=== PATIENT | male | born 1935 | race Caucasian/White ===

== ENCOUNTER 2020-07-20 10:11 | Inpatient (IN) | payer OTHER, SELFPAY ==
[~2020-07-20] VITALS: Ht 180.3 cm; Wt 98.9 kg
[2020-07-20 10:11] VITALS: BP_SYST 120
[2020-07-20 11:10] LABS: BASOPHILS % (AUTO) 0.4 % (0.0-2.0); EOSINOPHILS % (AUTO) 0.3 % (0.0-4.0); HEMATOCRIT 38.9 % (36-54); HEMOGLOBIN 13.1 g/dL (14.0-18.0); LYMPHOCYTES # (AUTO) 1.1 K/uL (1.0-5.5); LYMPHOCYTES % (AUTO) 25.4 % (20.5-51.5); MEAN CORPUSCULAR HEMOGLOBIN 31 pg (27-31); MEAN CORPUSCULAR HGB CONC 34 % (32-36); MEAN CORPUSCULAR VOLUME 93 fL (79.0-98.0); MONOCYTES # (AUTO) 0.5 K/uL (0.0-1.0); MONOCYTES % (AUTO) 11.6 % (1.7-9.3); NEUTROPHILS # (AUTO) 2.7 K/uL (1.8-7.7); NEUTROPHILS % (AUTO) 62.3 % (40.0-70.0); PLATELET COUNT (AUTO) 151 K/uL (130-430); RED CELL DISTRIBUTION WIDTH 14.4 % (9.0-15.0); WHITE BLOOD COUNT (AUTO) 4.3 K/uL (4.8-10.8)
[2020-07-20 11:31] LABS: ANION GAP 10 (5-15); CALCIUM 9.2 mg/dL (8.4-11.0); CHLORIDE 99 mmol/L (98-107); CREATININE 1.63 mg/dL (0.55-1.30); GLUCOSE 90 mg/dL (70-99); POTASSIUM 4.2 mmol/L (3.5-5.1); SODIUM SERUM 136 mmol/L (136-145); UREA NITROGEN, BLOOD 28 mg/dL (8-21)
[2020-07-20 11:36] LABS: BILIRUBIN,URINE NEGATIVE (NEGATIVE); BLOOD, URINE 1+ (NEGATIVE); CLARITY/URINE SL CLOUDY (CLEAR); COLOR,URINE YELLOW (YELLOW); GLUCOSE,URINE NEGATIVE (NEGATIVE); KETONES,URINE TRACE (NEGATIVE); LEUKOCYTE ESTERASE ,URINE NEGATIVE (NEGATIVE); NITRITE, URINE NEGATIVE (NEGATIVE); PROTEIN URINE 1+ (NEGATIVE); UROBILINOGEN,URINE 0.2 (0.2-1.0)
[2020-07-20 11:44] LABS: ACETONE, SERUM NEGATIVE (NEGATIVE)
[2020-07-20 11:46] LABS: ALANINE AMINOTRANSFERASE 33 U/L (12-78); ALBUMIN 3.4 g/dL (3.4-4.8); ASPARTATE AMINOTRANSFERASE 85 U/L (10-37)
[2020-07-20 11:47] LABS: PROTHROMBIN TIME 10.7 SECS (9.5-12.5)
[2020-07-20 12:07] LABS: CKMB RELATIVE INDEX 0.3 (0.0-2.9); CREATINE KINASE MB 4.1 ng/mL (0-3.6)
[2020-07-20 12:33] LABS: BACTERIA,URINE None Seen /HPF (None Seen); YEAST,URINE None Seen /HPF (None Seen)
[2020-07-20] MEDS ORDERED: NACL 0.9% 1,000 ML IV SCH (13:45)
[2020-07-20] MEDS ORDERED: ONDANSETRON HCL 4 MG/2 ML VIAL IVP PRN (16:45)
[2020-07-20] MEDS ORDERED: ACETAMINOPHEN 325 MG TABLET PO PRN (16:45)
[2020-07-20] MEDS ORDERED: NITROGLYCERIN 0.4 MG TAB.SUBL SL PRN (16:45)
[2020-07-20] MEDS ORDERED: MORPHINE 2 MG/ML INJ. SYRINGE IVP PRN (16:45)
[2020-07-20] MEDS ORDERED: NALOXONE HCL 0.4 MG/ML AMP (NARCAN) IVP PRN (16:45)
[2020-07-20] MEDS ORDERED: 0.45% NS 500 ML IV ONE (17:00)
[2020-07-20 17:23] LABS: CHOLESTEROL 165 mg/dL (<200); HDL CHOLESTEROL 41 mg/dL (>45); LDL CHOLESTEROL 103 mg/dL (<100); TRIGLYCERIDES 82 mg/dL (30-150)
[2020-07-20] MEDS ORDERED: AZITHROMYCIN 500 MG/VIAL (ZITHROMAX) IV ONE (17:24)
[2020-07-20] MEDS: AZITHROMYCIN 250 MG in NS 250 ML IV SCH (17:29)
[2020-07-20] MEDS: cefTRIAXone 1 GM IVPB PREMIX 50 ML IV SCH (17:30)
[2020-07-20] MEDS: FAMOTIDINE PF 20 MG/2 ML VIAL IVP SCH (20:54)
[2020-07-20] MEDS: METOPROLOL TARTRATE 25 MG TABLET PO SCH (20:55)
[2020-07-20] MEDS: ENOXAPARIN SODIUM 40 MG/0.4 ML SYRINGE SUBCUT SCH (20:56)
[2020-07-21] MEDS ORDERED: INSNLG7030 SUBCUT (01:23)
[2020-07-21] MEDS ORDERED: METO25TA3 PO (01:23)
[2020-07-21] MEDS ORDERED: GLIP2.5T3 PO (01:23)
[2020-07-21] MEDS ORDERED: APIX5TAB4 PO (01:23)
[2020-07-21] MEDS ORDERED: OMEP40CA13 PO (01:23)
[2020-07-21] MEDS ORDERED: BRI.2% EACH EYE (01:23)
[2020-07-21] MEDS ORDERED: FER300L PO (01:23)
[2020-07-21] MEDS ORDERED: LIP40 PO (01:23)
[2020-07-21] MEDS ORDERED: ASPI-1155 PO (01:23)
[2020-07-21] MEDS ORDERED: DITXL5 PO (01:23)
[2020-07-21] MEDS ORDERED: TIMO5DRO15 EACH EYE (01:23)
[2020-07-21 07:25] LABS: BASOPHILS % (AUTO) 0.5 % (0.0-2.0); EOSINOPHILS # (AUTO) 0.1 K/uL (0.0-0.4); EOSINOPHILS % (AUTO) 1.2 % (0.0-4.0); HEMATOCRIT 39.3 % (36-54); HEMOGLOBIN 13.2 g/dL (14.0-18.0); LYMPHOCYTES # (AUTO) 1.2 K/uL (1.0-5.5); LYMPHOCYTES % (AUTO) 24.1 % (20.5-51.5); MEAN CORPUSCULAR HEMOGLOBIN 31 pg (27-31); MEAN CORPUSCULAR HGB CONC 34 % (32-36); MEAN CORPUSCULAR VOLUME 92 fL (79.0-98.0); MONOCYTES # (AUTO) 0.5 K/uL (0.0-1.0); MONOCYTES % (AUTO) 9.7 % (1.7-9.3); NEUTROPHILS # (AUTO) 3.2 K/uL (1.8-7.7); NEUTROPHILS % (AUTO) 64.5 % (40.0-70.0); PLATELET COUNT (AUTO) 137 K/uL (130-430); RED BLOOD CELL COUNT(AUTO) 4.26 MIL/uL (4.2-6.2); RED CELL DISTRIBUTION WIDTH 14.6 % (9.0-15.0); WHITE BLOOD COUNT (AUTO) 4.9 K/uL (4.8-10.8)
[2020-07-21 07:58] LABS: ALANINE AMINOTRANSFERASE 33 U/L (12-78); ALBUMIN 2.9 g/dL (3.4-4.8); ANION GAP 9 (5-15); ASPARTATE AMINOTRANSFERASE 85 U/L (10-37); CALCIUM 8.2 mg/dL (8.4-11.0); CHLORIDE 102 mmol/L (98-107); CREATININE 1.36 mg/dL (0.55-1.30); GLUCOSE 96 mg/dL (70-99); POTASSIUM 4.2 mmol/L (3.5-5.1); SODIUM SERUM 136 mmol/L (136-145); TOTAL BILIRUBIN 0.7 mg/dL (0.0-1.0); UREA NITROGEN, BLOOD 24 mg/dL (8-21)
[2020-07-21 08:27] LABS: CKMB RELATIVE INDEX 0.5 (0.0-2.9)
[2020-07-21] MEDS ORDERED: ENOXAPARIN SODIUM 40 MG/0.4 ML SYRINGE SUBCUT SCH (09:00)
[2020-07-21] MEDS: ENOXAPARIN SODIUM 40 MG/0.4 ML SYRINGE SUBCUT SCH ×2 (09:00→21:41)
[2020-07-21] MEDS: DEXAMETHASONE SOD PHOSPHATE 10 MG/ML VIAL IVP SCH (09:42)
[2020-07-21] MEDS: ATORVASTATIN 10 MG TABLET PO SCH (09:43)
[2020-07-21] MEDS: FAMOTIDINE PF 20 MG/2 ML VIAL IVP SCH ×2 (09:43→21:48)
[2020-07-21] MEDS: ASCORBIC ACID 500 MG TABLET PO SCH ×2 (09:43→21:50)
[2020-07-21] MEDS: METOPROLOL TARTRATE 25 MG TABLET PO SCH ×2 (09:43→21:50)
[2020-07-21] MEDS: CHOLECALCIFEROL (VITAMIN D3) 5,000 UNIT TABLET PO SCH (09:43)
[2020-07-21] MEDS: NITROGLYCERIN 0.2 MG/HR PATCH.TD24 TD SCH (09:44)
[2020-07-21] MEDS: cefTRIAXone 1 GM IVPB PREMIX 50 ML IV SCH (17:45)
[2020-07-21] MEDS: AZITHROMYCIN 250 MG in NS 250 ML IV SCH (18:46)
[2020-07-22 06:46] LABS: BASOPHILS % (AUTO) 0.2 % (0.0-2.0); EOSINOPHILS % (AUTO) 0.1 % (0.0-4.0); HEMATOCRIT 39.1 % (36-54); HEMOGLOBIN 13.2 g/dL (14.0-18.0); LYMPHOCYTES # (AUTO) 0.8 K/uL (1.0-5.5); LYMPHOCYTES % (AUTO) 16.9 % (20.5-51.5); MEAN CORPUSCULAR HEMOGLOBIN 31 pg (27-31); MEAN CORPUSCULAR HGB CONC 34 % (32-36); MEAN CORPUSCULAR VOLUME 92 fL (79.0-98.0); MONOCYTES # (AUTO) 0.4 K/uL (0.0-1.0); MONOCYTES % (AUTO) 8.5 % (1.7-9.3); NEUTROPHILS # (AUTO) 3.7 K/uL (1.8-7.7); NEUTROPHILS % (AUTO) 74.3 % (40.0-70.0); PLATELET COUNT (AUTO) 168 K/uL (130-430); RED BLOOD CELL COUNT(AUTO) 4.27 MIL/uL (4.2-6.2); RED CELL DISTRIBUTION WIDTH 14.4 % (9.0-15.0)
[2020-07-22 07:15] LABS: ALANINE AMINOTRANSFERASE 33 U/L (12-78); ANION GAP 9 (5-15); ASPARTATE AMINOTRANSFERASE 67 U/L (10-37); CHLORIDE 100 mmol/L (98-107); CREATININE 1.23 mg/dL (0.55-1.30); GLUCOSE 246 mg/dL (70-99); POTASSIUM 4.4 mmol/L (3.5-5.1); SODIUM SERUM 134 mmol/L (136-145); TOTAL BILIRUBIN 0.7 mg/dL (0.0-1.0); UREA NITROGEN, BLOOD 21 mg/dL (8-21)
[2020-07-22] MEDS: CHOLECALCIFEROL (VITAMIN D3) 5,000 UNIT TABLET PO SCH (09:00)
[2020-07-22] MEDS: ENOXAPARIN SODIUM 40 MG/0.4 ML SYRINGE SUBCUT SCH ×2 (09:00→20:16)
[2020-07-22] MEDS: FAMOTIDINE PF 20 MG/2 ML VIAL IVP SCH ×2 (09:00→20:16)
[2020-07-22] MEDS: DEXAMETHASONE SOD PHOSPHATE 10 MG/ML VIAL IVP SCH (09:00)
[2020-07-22] MEDS: ATORVASTATIN 10 MG TABLET PO SCH (09:00)
[2020-07-22] MEDS: ASCORBIC ACID 500 MG TABLET PO SCH ×2 (09:00→20:15)
[2020-07-22] MEDS: NITROGLYCERIN 0.2 MG/HR PATCH.TD24 TD SCH (12:06)
[2020-07-22] MEDS ORDERED: AZITHROMYCIN 500 MG/VIAL (ZITHROMAX) IV ONE (18:08)
[2020-07-22] MEDS: AZITHROMYCIN 250 MG in NS 250 ML IV SCH (18:11)
[2020-07-22] MEDS: cefTRIAXone 1 GM IVPB PREMIX 50 ML IV SCH (18:12)
[2020-07-22] MEDS: METOPROLOL TARTRATE 25 MG TABLET PO SCH (20:15)
[2020-07-22 21:50] VITALS: BP_SYST 144
[2020-07-23 08:00] VITALS: BP_SYST 156
[2020-07-23 08:18] LABS: ALANINE AMINOTRANSFERASE 29 U/L (12-78); ALBUMIN 3.1 g/dL (3.4-4.8); ANION GAP 8 (5-15); ASPARTATE AMINOTRANSFERASE 49 U/L (10-37); CALCIUM 9.6 mg/dL (8.4-11.0); CHLORIDE 101 mmol/L (98-107); CREATININE 1.55 mg/dL (0.55-1.30); GLUCOSE 244 mg/dL (70-99); SODIUM SERUM 137 mmol/L (136-145); TOTAL BILIRUBIN 0.9 mg/dL (0.0-1.0); UREA NITROGEN, BLOOD 29 mg/dL (8-21)
[2020-07-23] MEDS ORDERED: ASC500 PO (08:26)
[2020-07-23] MEDS ORDERED: ALBMDI INH (08:26)
[2020-07-23] MEDS ORDERED: DEXA6TAB5 PO (08:30)
[2020-07-23] MEDS ORDERED: VITD2000 PO (08:30)
[2020-07-23] MEDS ORDERED: AZIT250T PO (08:30)
[2020-07-23] MEDS: CHOLECALCIFEROL (VITAMIN D3) 5,000 UNIT TABLET PO SCH (09:02)
[2020-07-23] MEDS: FAMOTIDINE PF 20 MG/2 ML VIAL IVP SCH ×2 (09:03→21:00)
[2020-07-23] MEDS: ASCORBIC ACID 500 MG TABLET PO SCH ×2 (09:03→21:00)
[2020-07-23] MEDS: DEXAMETHASONE SOD PHOSPHATE 10 MG/ML VIAL IVP SCH (09:10)
[2020-07-23] MEDS: amLODIPine BESYLATE 5 MG TABLET PO SCH (09:11)
[2020-07-23] MEDS: ATORVASTATIN 10 MG TABLET PO SCH (09:11)
[2020-07-23] MEDS: METOPROLOL TARTRATE 25 MG TABLET PO SCH ×2 (09:11→21:00)
[2020-07-23] MEDS: NITROGLYCERIN 0.2 MG/HR PATCH.TD24 TD SCH (09:12)
[2020-07-23] MEDS: ENOXAPARIN SODIUM 40 MG/0.4 ML SYRINGE SUBCUT SCH ×2 (09:33→21:00)
[2020-07-23 12:00] VITALS: BP_SYST 142
[2020-07-23 16:00] VITALS: BP_SYST 144
[2020-07-23] MEDS: cefTRIAXone 1 GM IVPB PREMIX 50 ML IV SCH (17:34)
[2020-07-23] MEDS: AZITHROMYCIN 250 MG in NS 250 ML IV SCH (18:37)
[2020-07-23 20:00] VITALS: BP_SYST 122
[2020-07-24] VITALS: BP_SYST 112
[2020-07-24 08:00] VITALS: BP_SYST 156
[2020-07-24 08:40] LABS: BASOPHILS % (AUTO) 0.1 % (0.0-2.0); HEMATOCRIT 39.6 % (36-54); HEMOGLOBIN 13.3 g/dL (14.0-18.0); LYMPHOCYTES % (AUTO) 10.3 % (20.5-51.5); MEAN CORPUSCULAR HEMOGLOBIN 31 pg (27-31); MEAN CORPUSCULAR HGB CONC 34 % (32-36); MEAN CORPUSCULAR VOLUME 92 fL (79.0-98.0); MONOCYTES # (AUTO) 1.3 K/uL (0.0-1.0); MONOCYTES % (AUTO) 13.2 % (1.7-9.3); NEUTROPHILS # (AUTO) 7.5 K/uL (1.8-7.7); NEUTROPHILS % (AUTO) 76.4 % (40.0-70.0); PLATELET COUNT (AUTO) 192 K/uL (130-430); RED CELL DISTRIBUTION WIDTH 14.4 % (9.0-15.0); WHITE BLOOD COUNT (AUTO) 9.8 K/uL (4.8-10.8)
[2020-07-24] MEDS: ASCORBIC ACID 500 MG TABLET PO SCH ×2 (09:31→20:15)
[2020-07-24] MEDS: ATORVASTATIN 10 MG TABLET PO SCH (09:31)
[2020-07-24] MEDS: amLODIPine BESYLATE 5 MG TABLET PO SCH (09:31)
[2020-07-24] MEDS: METOPROLOL TARTRATE 25 MG TABLET PO SCH ×2 (09:31→20:15)
[2020-07-24] MEDS: ENOXAPARIN SODIUM 40 MG/0.4 ML SYRINGE SUBCUT SCH ×2 (09:33→20:15)
[2020-07-24] MEDS: FAMOTIDINE PF 20 MG/2 ML VIAL IVP SCH ×2 (09:37→21:00)
[2020-07-24] MEDS: CHOLECALCIFEROL (VITAMIN D3) 5,000 UNIT TABLET PO SCH (09:37)
[2020-07-24] MEDS: NITROGLYCERIN 0.2 MG/HR PATCH.TD24 TD SCH (09:37)
[2020-07-24] MEDS: DEXAMETHASONE SOD PHOSPHATE 10 MG/ML VIAL IVP SCH (09:38)
[2020-07-24 09:58] LABS: ANION GAP 10 (5-15); CALCIUM 8.9 mg/dL (8.4-11.0); CHLORIDE 101 mmol/L (98-107); CREATININE 1.21 mg/dL (0.55-1.30); GLUCOSE 190 mg/dL (70-99); POTASSIUM 4.1 mmol/L (3.5-5.1); SODIUM SERUM 136 mmol/L (136-145); UREA NITROGEN, BLOOD 29 mg/dL (8-21)
[2020-07-24 16:00] VITALS: BP_SYST 158
[2020-07-24] MEDS: cefTRIAXone 1 GM IVPB PREMIX 50 ML IV SCH (17:53)
[2020-07-24] MEDS: AZITHROMYCIN 250 MG in NS 250 ML IV SCH (17:53)
[2020-07-24 20:00] VITALS: BP_SYST 160
[2020-07-25] VITALS: BP_SYST 149
[2020-07-25 07:21] VITALS: BP_SYST 149
[2020-07-25 08:00] VITALS: BP_SYST 162
[2020-07-25] MEDS: ENOXAPARIN SODIUM 40 MG/0.4 ML SYRINGE SUBCUT SCH (09:00)
[2020-07-25] MEDS: DEXAMETHASONE SOD PHOSPHATE 10 MG/ML VIAL IVP SCH (09:00)
[2020-07-25] MEDS: FAMOTIDINE PF 20 MG/2 ML VIAL IVP SCH (09:00)
[2020-07-25] MEDS: amLODIPine BESYLATE 5 MG TABLET PO SCH (09:16)
[2020-07-25] MEDS: CHOLECALCIFEROL (VITAMIN D3) 5,000 UNIT TABLET PO SCH (09:16)
[2020-07-25] MEDS: METOPROLOL TARTRATE 25 MG TABLET PO SCH (09:16)
[2020-07-25] MEDS: NITROGLYCERIN 0.2 MG/HR PATCH.TD24 TD SCH (09:16)
[2020-07-25] MEDS: ASCORBIC ACID 500 MG TABLET PO SCH (09:16)
[2020-07-25] MEDS: ATORVASTATIN 10 MG TABLET PO SCH (09:16)
[2020-07-25 12:00] VITALS: BP_SYST 146
[2020-07-25 15:23] VITALS: BP_SYST 146
== END 2020-07-25 16:25 | DRG 177 ==
LOC: SED 10:11 → STU 13:40 → SMU 07-24 15:43
PROVIDERS: ADMIT Internal Medicine; ATTEND Internal Medicine
DX: U07.1 COVID-19 (principal); J12.89 Other viral pneumonia; N17.9 Acute kidney failure, unspecified; I24.8 Other forms of acute ischemic heart disease; R65.10 Systemic inflammatory response syndrome (SIRS) of non-infectious origin without acute organ dysfunction; E78.5 Hyperlipidemia, unspecified; K21.9 Gastro-esophageal reflux disease without esophagitis; I12.9 Hypertensive chronic kidney disease with stage 1 through stage 4 chronic kidney disease, or unspecified chronic kidney disease; N18.9 Chronic kidney disease, unspecified; T38.0X5A Adverse effect of glucocorticoids and synthetic analogues, initial encounter; Y92.89 Other specified places as the place of occurrence of the external cause; Z79.899 Other long term (current) drug therapy
CPT/HCPCS: 36415; 70450-TC; 71045; 76376; 76770; 80048; 80053; 80061; 81000-TC; 82009-TC; 82550-TC; 82553-TC; 83605; 84484; 85025; 85379; 85610-TC; 85730-TC; 93005; 93306; 93880; 97110-GP; 97116-GP; 97530-GP; 99285; G0378; J0456; J0696; J1100; J1650; J3490; J7050; U0003